=== PATIENT | male | born 1975 | race African-American/Black ===

== ENCOUNTER 2023-05-04 20:44 | Inpatient (IN) ==
[2023-05-04] MEDS ORDERED: LORazepam 2 mg VIAL 1 ml ONE ×2 (20:58→21:02)
[2023-05-04] MEDS ORDERED: Lorazepam PYXIS KEY PRN ×2 (21:11)
[2023-05-04] MEDS ORDERED: LORazepam 2 mg VIAL 1 ml IV PUSH ONE ×2 (21:11)
[2023-05-04 21:21] LABS: ABS Eosinophils 0.3 10^3/uL (0.0-0.5); ABS Lymphocytes 3.4 10^3/uL (1.0-4.8); ABS Monocytes 0.5 10^3/uL (0.0-1.1); ABS Neutrophils 1.7 10^3/uL (1.5-7.6); ABS Nucleated RBC 0.01 10^3/ul; Eosinophil % 4.7 %; Hematocrit 42.6 % (38-53); Hemoglobin 14.2 g/dL (13.2-16.3); Lymphocyte % 57.4 %; Mean Corpuscular Hemoglobin 29.5 pg (27-33); Mean Corpuscular Hgb Conc 33.4 g/dL (31-36); Mean Corpuscular Volume 88.2 fL (80-97); Mean Platelet Volume 8.1 fL (7.5-11.2); Nucleated Red Blood Cells % 0.2 %/100WBC (0.0-0.8); Platelet Count 297 10^3/uL (150-450); Red Blood Count 4.83 10^6/uL (4.06-5.63); Red Cell Distribution Width 13.9 % (12-17); White Blood Count 5.9 10^3/uL (3.6-10.2)
[2023-05-04 21:40] LABS: Albumin 4.4 g/dL (3.2-5.2); Albumin/Globulin Ratio 1.3 (1-3); Calcium 9.6 mg/dL (8.6-10.3); Creatinine, Serum 1.25 mg/dL (0.67-1.17); Globulin 3.3 g/dL (2-4); Magnesium 2.1 mg/dL (1.9-2.7); Phosphorus 2.7 mg/dL (2.5-5.0); Potassium 3.4 mmol/L (3.5-5.0); Total Bilirubin 0.3 mg/dL (0.2-1.0); Total Protein 7.7 g/dL (6.4-8.9); eGFR CKD-EPI 71.9 (>60)
[2023-05-04] MEDS ORDERED: NS 0.9% 1000 ml BAG 1,000 ML IV ONE ×2 (21:55→21:56)
[2023-05-04 21:56] LABS: Urine Appearance Cloudy; Urine Bilirubin Negative (Negative); Urine Blood 1+ (Negative); Urine Color Yellow; Urine Glucose Negative (Negative); Urine Ketones Negative (Negative); Urine Nitrite Negative (Negative); Urine Protein Negative (Negative); Urine Specific Gravity 1.025 (1.002-1.030); Urine Urobilinogen Negative (Negative)
[2023-05-04 21:58] LABS: Urine Bacteria Absent (Absent); Urine Red Blood Cell 2+(6-10/hpf) (Absent); Urine White Blood Cell Trace(0-5/hpf) (Absent)
[2023-05-04 22:15] LABS: Urine Benzodiazepine Screen None Detected (None Detect); Urine Cannabinoids Screen Presumptive Positive (None Detect); Urine Opiates Screen None Detected (None Detect)
[2023-05-04 22:36] LABS: High Sensitivity Troponin 1 Hr 3 pg/mL (<20)
[2023-05-04 22:53] LABS: TSH Ultra Thyroid Stim Horm 1.02 mcIU/mL (0.34-5.60)
[2023-05-04 23:05] LABS: Vitamin B12 428 pg/mL (180-914)
[2023-05-04] MEDS: KCL 20 MEQ/100 ML IVPREMIX 20 MEQ/100 ML BAG IV SCH (23:46)
[2023-05-05 02:17] LABS: Alcohol, S < 13 mg/dL (<13)
[2023-05-05] MEDS: KCL 20 MEQ/100 ML IVPREMIX 20 MEQ/100 ML BAG IV SCH ×2 (02:46→05:07)
[2023-05-05] MEDS: NS 0.9% 1000 ml BAG 1,000 ML IV SCH ×2 (02:46→10:46)
[2023-05-05 06:43] LABS: Calcium 8.6 mg/dL (8.6-10.3); Creatinine, Serum 1.09 mg/dL (0.67-1.17); Potassium 4.3 mmol/L (3.5-5.0); eGFR CKD-EPI 84.8 (>60)
[2023-05-05 12:54] VITALS: BP 140/77
== END 2023-05-05 12:54 | disposition home or self-care (01) | DRG 812 ==
LOC: ED 20:44 → SUATTDRO 23:29 → EDHOLD 23:29
PROVIDERS: ADMIT Internal Medicine; ATTEND Internal Medicine